=== PATIENT | male | born 1990 | race Caucasian/White ===

== ENCOUNTER 2017-03-30 23:39 | Emergency (ER) | payer SELFPAY ==
[2017-03-31 03:16] VITALS: BP 127/78
== END 2017-03-31 03:16 | disposition home or self-care (01) ==
LOC: ED 23:39
DX: S13.4XXA Sprain of ligaments of cervical spine, initial encounter (principal); V47.5XXA Car driver injured in collision with fixed or stationary object in traffic accident, initial encounter; Y93.89 Activity, other specified; Y99.8 Other external cause status; Y92.89 Other specified places as the place of occurrence of the external cause

== ENCOUNTER 2019-08-08 20:32 | Emergency (ER) | payer SELFPAY ==
[~2019-08-08] VITALS: Ht 170.2 cm; Wt 81.2 kg
[2019-08-08 20:46] VITALS: Ht 170.2 cm; Wt 81.2 kg
[2019-08-09 02:46] VITALS: BP 120/82
== END 2019-08-08 23:50 | disposition home or self-care (01) ==
LOC: ED 20:32
DX: S39.012A Strain of muscle, fascia and tendon of lower back, initial encounter (principal); V43.52XA Car driver injured in collision with other type car in traffic accident, initial encounter; Y93.I9 Activity, other involving external motion; Y92.413 State road as the place of occurrence of the external cause; Y99.8 Other external cause status